=== PATIENT | female | born 1995 | race Caucasian/White ===

== ENCOUNTER 2016-07-19 15:16 | Inpatient (IN) ==
[2016-07-19] MEDS ORDERED: Famotidine 20 MG/2 ML VIAL IVP PRN (15:21)
[2016-07-19] MEDS ORDERED: Naloxone 0.4 MG/ML INJ IVP PRN (15:21)
[2016-07-19] MEDS ORDERED: Ondansetron 4 MG/2 ML VIAL IVP PRN (15:21)
[2016-07-19] MEDS ORDERED: miSOPROStol 100 MCG TABLET PO STA (15:23)
[2016-07-19] MEDS ORDERED: *HR* Nalbuphine 20 MG/ML AMPUL IVP PRN (15:25)
[2016-07-19] MEDS ORDERED: Ringers Solution, Lactated 1,000 ML IVC SCH (15:30)
[2016-07-19 15:48] LABS: Basophils # 0.1 K/mcL (0.0-0.2); Basophils % 0.6 %; Eosinophils # 0.4 K/mcL (0.0-0.6); Eosinophils % 3.5 %; Hematocrit 33.8 % (35.3-44.9); Hemoglobin 11.6 g/dL (11.5-15.4); Immature Granulocytes % 0.7 % (0-4); Lymphocytes # 3.3 K/mcL (0.6-4.6); Lymphocytes % 30.4 %; Mean Corpuscular HGB Conc 34.3 g/dL (31.6-35.5); Mean Corpuscular Hemoglobin 31.2 pg (28.0-33.3); Mean Corpuscular Volume 90.9 fL (83.0-100.0); Mean Platelet Volume 9.8 fL (9.4-12.4); Monocytes # 0.6 K/mcL (0.0-1.3); Neutrophils # 6.5 K/mcL (1.6-8.9); Platelet Count 425 K/mcL (140-400); Red Blood Count 3.72 M/mcL (3.82-4.97); Red Cell Distribution Width 13.2 % (11.5-14.5); Segmented Neutrophils % 59.8 %
--- NOTE | 2016-07-19 16:50 | OB/GYN History & Physical ---
Date of Encounter: 07/19/16 Time of Encounter: 16:48 Assessment and Plan (1) and not yet delivered in third trimester Current visit: No Status: Acute - Labor induction -50 mg Cytotec by mouth. -Monitor for progression of vaginal delivery. (2) 39 weeks gestation of Current visit: No Status: Acute History of Present Illness HPI: Ms. Mishra is a 21 y/o old female and a history of ectopic presenting at 39 weeks and 1 day. She is presenting to be induced. Patient is complicated by maternal hepatitis C infection, several yeast infections, and anemia. She is a current every day smoker. She does report a 2-3 year ago history of drug use. She states she just recently finished azithromycin for a URI. She reports a cough that is getting better at this time. She is also reporting a yeast infection. She has no other complaints at this time. She is resting comfortably in bed with no distress. Past Med Surg Social Fam HX - Past Medical History Medical history: no medical history, other Psychiatric history: anxiety, PTSD - Past Surgical History Surgical History: other - Social History Smoking Status: Current every day smoker Packs per day: 1 Smokeless Tobacco Status: No Alcohol use: none Drug use: none - Family History Mother Name: Minerva Colon Family Member Ethnicity: Non- Living Status: Still Living Hx Family Cardiac Disorders: No Hx Family Respiratory Disorders: No Hx Family Cancer: No Hx Family GI Disorders: No Hx Family Endocrine Disorder: No Hx Family Neuromuscular Disorders: No Hx Family Neurologic Disorders: No Hx Family HEENT Disorders: No Hx Family Autoimmune Disorders: No Hx Family Medical Disorders: Yes (Anxiety) Obstetrical History - Pregnancies : 2 Para: 0 - History/Complications History/Complications: 1 ectopic . Medications and Allergies Loratadine [Claritin] 10 mg PO DAILY #30 tablet 01/06/16 [Rx] Seroquel 25 mg PO DAILY 07/17/16 [History] Allergies Penicillins [PCN] Allergy (Verified 03/29/16 19:37) Rash Review of System OB All systems PM: reviewed and no additional remarkable complaints except as stated - Respiratory Respiratory: cough (productive), no dyspnea, no dyspnea on exertion, no wheezing , no pain on inspiration, no pain with cough - Genitourinary Genitourinary: vaginal pruritis, other (Reported yeast infection.) Exam - Vital Signs Vital signs: Initial Vital Signs Temp Pulse Resp BP 97.6 F 89 16 109/77 07/19/16 15:55 07/19/16 15:55 07/19/16 15:55 07/19/16 15:55 - Constitutional Constitutional: well developed, well nourished, no acute distress, average body habitus - HEENT HEENT: EOMI, PERRL, Normocephaly, Mucus Membranes Moist - Neck Neck exam: full ROM, normal inspection, supple, trachea midline - Lungs Respiratory exam: CTAB - Cardiovascular Cardiovascular exam: RRR - Abdomen Abdomen: Present: bowel sounds normal, gravid, non tender - Extremities Deep Tendon Reflex Grade: 2+ Normal - Uterus Uterus exam: Present: normal size. Absent: tender Results Result Diagrams: 07/19/16 15:35 Abnormal lab results RBC 3.72 M/mcL (3.82-4.97) L 07/19/16 15:35 Hct 33.8 % (35.3-44.9) L 07/19/16 15:35 Plt Count 425 K/mcL (140-400) H 07/19/16 15:35 All other labs normal. - VTE Reasons for not Prescribing Prophylaxis: Treatment not Indicated - Low risk for VTE
[2016-07-19] MEDS ORDERED: *HR* Nalbuphine 20 MG/ML AMPUL ONE (19:55)
[2016-07-19] MEDS ORDERED: Oxytocin 20 units/ LR 1000 mL 20 UNIT/1,000 ML BAG IVC ONE (21:43)
[2016-07-19] MEDS ORDERED: Oxytocin 20 units/ LR 1000 mL 20 UNIT/1,000 ML BAG IVC SCH (21:45)
--- NOTE | 2016-07-19 21:48 | OB Labor Progress Note ---
Date of Encounter: 07/19/16 Time of Encounter: 21:46 Labor Progress Note - Subjective Subjective: Contraction intensity improved s/p Nubain - Cervix Cervix: 3/80/-2 - Heart Tones Heart Tones: RNST - [place]: UC's irregular - Interventions Interventions: Will start Pitocin. - Plan Plan: Expect .
[2016-07-19] MEDS ORDERED: Nicotine 14 MG PATCH.TD24 TD SCH (22:45)
--- NOTE | 2016-07-20 00:33 | OB Labor Progress Note ---
Date of Encounter: 07/20/16 Time of Encounter: 00:30 Labor Progress Note - Subjective Subjective: Pt getting more uncomfotable - Cervix Cervix: 2-3/70/-2 - Heart Tones Heart Tones: RNST - [place] Add[place]: UC's q 2-3 min - Interventions Interventions: AROM clear, IUPC placed without difficulty - Plan Plan: Expect
[2016-07-20] MEDS ORDERED: Bupivacaine-MPF 0.25% 10 ML VIAL EP ONE (00:58)
[2016-07-20] MEDS ORDERED: *HR* FentaNYL (PF) 100 MCG/2 ML VIAL EP ONE (00:58)
[2016-07-20] MEDS ORDERED: Epidural Premix (fent/bupiv) 110 ML EP SCH (01:00)
[2016-07-20] MEDS ORDERED: Epidural Premix (fent/bupiv) 110 ML EP ONE (01:08)
[2016-07-20] MEDS ORDERED: *HR* FentaNYL (PF) 100 MCG/2 ML VIAL ONE (01:08)
[2016-07-20] MEDS ORDERED: Bupivacaine-MPF 0.25% 10 ML VIAL ONE (01:08)
--- NOTE | 2016-07-20 01:42 | Anesthesia Evaluation PreOp ---
Date of Encounter: 07/20/16 Time of Encounter: 01:00 - Past History Planned Operation: labor epidural Cardiac History: Denies any Significant Hx Pulmonary History: Smoker (1/2 ppd) C WPF DEVELOPER History: Denies Any Significant HX, Other (anxiety/depression) Other Medical History: Denies Any Significant HX Anesthesia History: No Prior Anesthetic Complications, Past Anesthesia (T&A, fallopian tube removed.) : Yes Alcohol Use: none Drug use: none Medications and Allergies Loratadine [Claritin] 10 mg PO DAILY #30 tablet 01/06/16 [Rx] Seroquel 25 mg PO DAILY 07/17/16 [History] Allergies Penicillins [PCN] Allergy (Verified 03/29/16 19:37) Rash - Meds/Allergy Pre-op Review Medications Reviewed: Yes Allergies Reviewed: Yes Beta Blockers on Current Med List: No Anesthesia Results - Labs 07/19/16 15:35 Anesthesia Exam 132/1021, 66, 16, 98% Height: 5'3" Weight: 76 NPO (# of Hours): 6 Pain Scale: 10 Pain Scale Used: Numeric (1 - 10) - HEENT Pupil (Motor): Pupils equal, EOMI Mallampati: II Teeth: Normal Oral Opening: Greater than 3 - C WPF DEVELOPER LOC: Oriented C WPF DEVELOPER Motor: Normal RUE, Normal LUE, Normal RLE, Normal LLE, Normal Face C [employer] DEVELOPER Sensory: Normal: RUE, LUE, RLE, LLE, Face - Cardiac Rhythm: Regular Murmur: None - Pulmonary Breath Sounds: bilateral Clear Respiratory Effort: Symmetrical Anesthesia Assess/Plan ASA Score: 2 Modified Pioneer Scale for Level of Consciousness: Cooperative, oriented, and tranquil Anesthetic Plan: Regional Monitoring Plan: Standard Monitors
--- NOTE | 2016-07-20 01:47 | Anesthesia Procedures ---
Date of Encounter: 07/20/16 Time of Encounter: 01:10 Procedures: Anesthesia - Epidural/Spinal Patient ID/Chart reviewed: Yes Patient examined: Yes OB Eval: Gestational age: 39 OB Eval: : 2 OB Eval: Hx Para: 0 OB Eval: Dilated at (cm): 2 OB Eval: Contractions: Non-stressed pattern Consent Obtained: Yes Supplemental Oxygen: None/Room Air Site Prep: Aseptic Technique, Sterile prep and drape, Povidone-Iodine 1% Patient position: upright Local Anesthetic: Lidocaine 1% Amount of Local Anesthetic used: 3 Touhy Needle Gauge: 18 Touhy Needle Depth (cm): 5 Catheter Depth at Skin (cm): 16 Test Dose (1.5% Lido + Epi): Volume given (mls): 3 Test Dose Result: Negative Loading Dose: 0.25% Marcaine (mls): 8 Loading Dose: Fentanyl (mcg): 100 Loading Dose Administered: Thru Catheter Infusion Med: 0.125% Bupivacaine w/ 2 mcg/ml Fentanyl Infusion Rate (mls/hr): [address]: Tegaderm, Tape Interspace Used: L2-L3 Loss of Resistance (ONUR): Yes Blood: No CSF: No Paresthesia: No Vitals + FHT's: 3 Vital Signs Time 0110 0115 0120 0125 0130 0135 BP 128/84 123/83 123/79 123/86 122/87 115/74 Pulse 84 83 84 70 61 66 FHTs 125 125 130 125 125 125
--- NOTE | 2016-07-20 06:27 | OB/GYN Procedure Note ---
Delivery - Delivery Date: 07/20/16 Provider: Lior Burdick Intrapartum events: none Delivery induction: oxytocin, misoprostol Delivery monitor: external FHT, internal FHT Anesthesia: epidural Estimated Blood Loss: 100 - (s) Infant A Infant Delivery Date: 07/20/16 Delivery Time: 06:01 Presentation: vertex Position: CLARA Route of delivery: Gender: Male Viability: Viable Pounds: 6 Ounces: 12 at 1 minute: 8 at 5 mins: 9 Shoulder Dystocia: not encountered Placenta: spontaneous Cord: 3 umbilical vessels - Repair Episiotomy: none Laceration Description: Perineal - 2nd Degree, Labial - Complications Delivery complications: none - Disposition Mom disposition: stable in LDR disposition: stable in LDR
[2016-07-20] MEDS ORDERED: Acetaminophen 325 MG TABLET PO PRN (08:53)
[2016-07-20] MEDS ORDERED: Measles/Mumps/Rubella Vacc 0.5 ML VIAL SQ PRN (08:53)
[2016-07-20] MEDS ORDERED: Oxytocin 20 units/ LR 1000 mL 20 UNIT/1,000 ML BAG IVC ONE (08:53)
[2016-07-20] MEDS ORDERED: Oxytocin 20 units/ LR 1000 mL 20 UNIT/1,000 ML BAG IV SCH (08:53)
[2016-07-20] MEDS ORDERED: Prenatal Vit/FA 1 EACH TABLET PO SCH (09:00)
[2016-07-20] MEDS: Ibuprofen 600 MG TABLET PO PRN ×2 (09:00→20:43)
[2016-07-20] MEDS ORDERED: Lanolin 7 G OINT...G. TP PRN (17:17)
[2016-07-21 04:14] LABS: Basophils # 0.1 K/mcL (0.0-0.2); Basophils % 0.5 %; Eosinophils # 0.3 K/mcL (0.0-0.6); Eosinophils % 2.4 %; Hematocrit 26.1 % (35.3-44.9); Immature Granulocytes % 0.9 % (0-4); Lymphocytes # 3.4 K/mcL (0.6-4.6); Lymphocytes % 23.9 %; Mean Corpuscular HGB Conc 33.3 g/dL (31.6-35.5); Mean Corpuscular Hemoglobin 31.1 pg (28.0-33.3); Mean Corpuscular Volume 93.2 fL (83.0-100.0); Mean Platelet Volume 9.8 fL (9.4-12.4); Monocytes # 0.7 K/mcL (0.0-1.3); Neutrophils # 9.5 K/mcL (1.6-8.9); Platelet Count 338 K/mcL (140-400); Red Cell Distribution Width 13.3 % (11.5-14.5); Segmented Neutrophils % 67.3 %
[2016-07-21 04:31] LABS: Hemoglobin 8.7 g/dL (11.5-15.4)
[2016-07-21] MEDS: Ibuprofen 600 MG TABLET PO PRN (07:33)
[2016-07-21 07:39] VITALS: BP 110/74
--- NOTE | 2016-07-21 09:30 | Discharge Summary ---
Date of Encounter: 07/21/16 Time of Encounter: 09:27 - Discharge Diagnosis (1) Status post vaginal delivery Priority: Primary Status: Acute Comments: Continue routine care discharge today follow up with Dr. Burdick in 4-6 weeks (2) Breast feeding status of mother Priority: Secondary Status: Acute Comments: support PRN (3) anemia Priority: Secondary Status: Acute Comments: Continue ferrous sulfate daily - Discharge Medications Prescriptions: Ibuprofen [Motrin] 600 mg PO Q6HR PRN #60 tablet PRN Reason: Cramping Breast Pump [BREAST PUMP] 1 each .ROUTE AD #1 each Docusate [Colace] 100 mg PO BID #60 capsule Ferrous Sulfate 325 mg PO DAILY #30 tablet Home Medications: Loratadine [Claritin] 10 mg PO DAILY #30 tablet 01/06/16 [Rx] Seroquel 25 mg PO DAILY 07/17/16 [History] Breast Pump [BREAST PUMP] 1 each .ROUTE AD #1 each 07/21/16 [Rx] Docusate [Colace] 100 mg PO BID #60 capsule 07/21/16 [Rx] Ferrous Sulfate 325 mg PO DAILY #30 tablet 07/21/16 [Rx] Ibuprofen [Motrin] 600 mg PO Q6HR PRN #60 tablet 07/21/16 [Rx] Vit/FA 1 each PO DAILY tablet 07/21/16 [Rx] Allergies/Adverse Reactions: Allergies Penicillins [PCN] Allergy (Verified 03/29/16 19:37) Rash Data Procedures and tests throughout hospitalization: Laboratory Tests 07/19/16 07/21/16 15:35 03:46 WBC 10.9 14.1 H RBC 3.72 L 2.80 L Hgb 11.6 8.7 L D Hct 33.8 L 26.1 L MCV 90.9 93.2 MCH 31.2 31.1 MCHC 34.3 33.3 RDW 13.2 13.3 Plt Count 425 H 338 MPV 9.8 9.8 Immature Gran % 0.7 0.9 Seg Neutrophils % 59.8 67.3 Lymphocytes % 30.4 23.9 Monocytes % 5.0 5.0 Eosinophils % 3.5 2.4 Basophils % 0.6 0.5 Neutrophils # 6.5 9.5 H Lymphocytes # 3.3 3.4 Monocytes # 0.6 0.7 Eosinophils # 0.4 0.3 Basophils # 0.1 0.1 Labs on day of discharge: Labs from last 24 hours 07/21/16 03:46 WBC 14.1 H RBC 2.80 L Hgb 8.7 L D Hct 26.1 L MCV 93.2 MCH 31.1 MCHC 33.3 RDW 13.3 Plt Count 338 MPV 9.8 Immature Gran % 0.9 Seg Neutrophils % 67.3 Lymphocytes % 23.9 Monocytes % 5.0 Eosinophils % 2.4 Basophils % 0.5 Neutrophils # 9.5 H Lymphocytes # 3.4 Monocytes # 0.7 Eosinophils # 0.3 Basophils # 0.1 Date of admission: 07/19/16 15:16 Primary care physician: PCP NO Consults: 07/20/16 08:53 Consult to Metal Hanging Helper [CONS] Routine Comment: Vaginal delivery, consult needed Discharging clinician: Luz Mendoza Anticipated date of discharge: 07/21/16 - Patient Status Disposition: Home, Self-Care Condition: Good Functional capacity at discharge: independent ambulation - Discharge Instructions Follow Up With: WILFRED,PCP [Primary Care Provider] - Lior Burdick MD [Partnered Physician] - - Diet and Activity Activity: increase activity as tolerated Diet: regular diet Hospital Course Reason for admission: induction of labor Delivery: Episiotomy: none Other procedures: none complications: none Discharge diagnosis: IUP at term delivered baby: male (breast feeding) Time Attestation: Total time spent providing and/or coordinating discharge services: Time Spent: Less than 30 minutes Exam - Constitutional Vitals: Temp Pulse Resp BP Pulse Ox 97.1 F L 91 16 110/74 97 07/21/16 07:37 07/21/16 07:37 07/21/16 07:45 07/21/16 07:37 07/21/16 07:37 General appearance IM: A&O X 3, pleasant, answers questions appropriately - Respiratory Respiratory exam: Present: CTAB - Cardiovascular Cardiovascular exam IM: Present: RRR, +S1, +S2 - GI/Abdominal GI/Abdominal exam IM: normal bowel sounds - Uterine Tone: Firm Uterus Position: 2 Fingers Below Umbilicus, Midline - Extremities Exam Extremities exam IM: Present: normal capillary refill, normal inspection - Neurological Exam Neurological exam: oriented X3, reflexes normal
== END 2016-07-21 12:24 | disposition home or self-care (01) | DRG 560 ==
LOC: 1NENULAB 15:16 → 1NENUOBS 07-20 08:49
PROVIDERS: ADMIT Obstetrics & Gynecology; ATTEND Obstetrics & Gynecology

== ENCOUNTER 2017-09-05 03:37 | Inpatient (IN) ==
[2017-09-05] MEDS ORDERED: Ziprasidone injection 20 MG/ML VIAL IM ONE (04:15)
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
[2017-09-05 05:12] LABS: Amphetamine Screen,Urine Positive ng/mL (Cutoff=1000); Barbiturate Screen,Urine Negative ng/mL (Cutoff=200); Benzodiazepines Screen,Urine Negative ng/mL (Cutoff=200); Cannabinoid Screen,Urine Positive ng/mL (Cutoff = 50); Cocaine Screen,Urine Positive ng/mL (Cutoff= 300); Opiate Screen,Urine Negative ng/mL (Cutoff=300); Phencyclidine Screen,Urine Negative ng/mL (Cutoff=25)
[2017-09-05 05:16] LABS: Bilirubin,Urine Small (Negative); Blood,Urine Large (Negative); Clarity,Urine Cloudy (Clear); Color,Urine Dark Yellow (Yellow); Glucose,Urine (UA) Normal (Normal); Ketones,Urine Negative (Negative); Leukocyte Esterase,Urine Small (Negative); Nitrite,Urine Negative (Negative); PH,Urine 5.5 pH Units (5.0-8.0); Protein,Urine 30 mg/dL (Neg-Trace); Specific Gravity,Urine 1.028 (1.010-1.025); Urobilinogen,Urine Normal (Normal)
[2017-09-05 05:20] LABS: Bacteria,Urine None Seen per hpf (None-Few); Hyaline Casts,Urine Few per lpf (None-Few); Squamous Epithelial Cell,Urine Many per lpf (None-Few)
[2017-09-05 05:42] LABS: Basophils # 0.1 K/mcL (0.0-0.2); Basophils % 0.5 %; Eosinophils % 0.2 %; Hematocrit 44.4 % (35.3-44.9); Hemoglobin 14.7 g/dL (11.5-15.4); Immature Granulocytes % 0.3 % (0-4); Lymphocytes % 31.2 %; Mean Corpuscular HGB Conc 33.1 g/dL (31.6-35.5); Mean Corpuscular Hemoglobin 30.2 pg (28.0-33.3); Mean Corpuscular Volume 91.4 fL (83.0-100.0); Mean Platelet Volume 9.2 fL (9.4-12.4); Monocytes # 0.6 K/mcL (0.0-1.3); Monocytes % 4.6 %; Platelet Count 321 K/mcL (140-400); Red Blood Count 4.86 M/mcL (3.82-4.97); Red Cell Distribution Width 12.9 % (11.5-14.5); Segmented Neutrophils % 63.2 %
[2017-09-05 06:04] LABS: Acetaminophen < 1.0 mcg/mL (10-30); Ethanol < 10 mg/dL (0-10); Salicylate < 5.0 mg/dL (15.0-30.0)
[2017-09-05 06:09] LABS: Alanine Aminotransferase 56 Units/L (7-52); Albumin 4.9 g/dL (3.5-5.7); Albumin/Globulin Ratio 1.5 (1.1-2.2); Alkaline Phosphatase 51 Units/L (34-104); Aspartate Amino Transferase 29 Units/L (13-39); BUN/Creatinine Ratio 28 (6-26); Bilirubin,Direct 0.3 mg/dL (0.0-0.2); Bilirubin,Indirect 1.2 mg/dL (0.0-1.2); Bilirubin,Total 1.5 mg/dL (0.3-1.0); Blood Urea Nitrogen 23 mg/dL (6-20); Carbon Dioxide 26 mEq/L (23-29); Chloride 107 mEq/L (98-107); Globulin 3.2 g/dL (2.4-3.5); Glucose 93 mg/dL (70-105); Osmolality,Calculated 295 (280-300); Potassium 3.3 mEq/L (3.5-5.1); Sodium 141 mEq/L (136-145); Total Protein 8.1 g/dL (6.4-8.9); eGFR For African Americans > 60 (> 60); eGFR For Non-African Americans > 60 (> 60)
[2017-09-05 06:21] LABS: Thyroid Stimulating Hormone 0.859 mcIU/mL (0.340-5.600)
[2017-09-05] MEDS ORDERED: Haloperidol Lactate 5 MG/ML VIAL IM ONE (07:38)
[2017-09-05] MEDS ORDERED: *HR* LORazepam 2 MG/ML VIAL IM ONE (07:38)
[2017-09-05] MEDS: Sulfamethoxazole/Trimeth DS 1 EACH TABLET PO SCH ×2 (07:46→13:59)
[2017-09-05] MEDS: Nicotine 21 MG PATCH.TD24 TD SCH (08:04)
[2017-09-05] MEDS ORDERED: Mag Hydrox/Al Hydrox/Simeth 30 ML UDC PO PRN (14:30)
[2017-09-05] MEDS ORDERED: Haloperidol Lactate 5 MG/ML VIAL IM PRN (14:30)
[2017-09-05] MEDS ORDERED: MOM Conc 10 ML UD.LIQ PO PRN (14:30)
[2017-09-05] MEDS ORDERED: *HR* LORazepam 1 MG TABLET PO PRN (14:30)
[2017-09-05] MEDS ORDERED: *HR* LORazepam 2 MG/ML VIAL IM PRN (14:30)
[2017-09-05] MEDS: Ibuprofen 400 MG TABLET PO PRN (20:38)
[2017-09-05] MEDS: hydrOXYzine pamoate 25 MG CAPSULE PO PRN (20:39)
[2017-09-06] MEDS: Nicotine 21 MG PATCH.TD24 TD SCH (08:45)
[2017-09-06] MEDS: Sulfamethoxazole/Trimeth DS 1 EACH TABLET PO SCH (08:45)
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
[2017-09-06] MEDS: Ibuprofen 400 MG TABLET PO PRN (12:36)
[2017-09-06] MEDS: hydrOXYzine pamoate 25 MG CAPSULE PO PRN (12:36)
[2017-09-06] MEDS: lamoTRIgine 25 MG TABLET PO SCH (21:25)
[2017-09-07] MEDS: Nicotine 21 MG PATCH.TD24 TD SCH (08:07)
[2017-09-07] MEDS: Sulfamethoxazole/Trimeth DS 1 EACH TABLET PO SCH (08:07)
--- NOTE | 2017-09-07 11:43 | Psychiatry Progress Note ---
Date of Encounter: 09/07/17 Time of Encounter: 11:30 Subjective Interval history: Patient seen today case d/w staff and treatment team . states i want to go home i am alright. she has no insight , she states i do not feel better , i miss my family. she saw her son yesterday and felt better , my grand mother has custody now and he is safe . she is looking sad , dysphoric and admits to being depress. she denies suicidal /homicidal thoughts. paranoia improving , denies hallucination. Review of Systems Psychiatric: Reports: depression, anxiety, abnormal sleep pattern, auditory hallucinations, visual hallucinations, irritability, mood swings (patient denies any medical problems except scoliosis.) Objective: Exam Patient orientation: Yes Person, Yes Time, Yes Place Level of alertness: Alert Patient appearance: Appropriate Behavior: cooperative, withdrawn Psychomotor activity: Slowed Eye contact: Minimal Contact Mood description: Depressed, Anxious Affect description: congruent with mood Speech pattern: Slowed Speech volume: Soft/Quiet Thought process: Intact Thought content: Yes Preoccupation, Yes Guilt Judgment: Limited Insight: Minimal Results - Vital Signs Vital Signs: Temp Pulse Resp BP Pulse Ox 97.8 F 101 16 112/80 96 09/07/17 09:00 09/07/17 09:00 09/07/17 09:00 09/07/17 09:00 09/05/17 09:00 Assessment and Plan (1) Bipolar disorder, curr episode depressed, severe, w/psychotic features Current visit: Yes Status: Acute Risks, benefits, side effects, alternatives discussed w/pt: Yes Patient agreeable to treatment: Yes (2) Polysubstance (excluding opioids) dependence Current visit: Yes Status: Acute Risks, benefits, side effects, alternatives discussed w/pt: Yes Patient agreeable to treatment: Yes (3) PTSD (post-traumatic stress disorder) Current visit: Yes Status: Chronic Risks, benefits, side effects, alternatives discussed w/pt: Yes Patient agreeable to treatment: Yes Consult Discharge Plan - Plan Referrals: [facility] [Outside] (The above appointment is with Zenaida Vargas, counselor at [facility]. Your first appointment will be very thorough and the total appointment time will take between two and three hours. You will be completing paperwork, meeting with a counselor and a nurse, and developing a treatment plan. You will receive follow- up appointments for on-going services, which could include community support, mental health and substance abuse counseling, groups/partial hospitalization programming, medication assisted treatment, and psychiatric medication management. Please bring the following with you to your first visit to the clinic: 1) proof of household income (two consecutive pay stubs, social security award letter, bank statement, statement letter from [facility], child support statement, IRS 1040 or W2 form, or a statement from the person who financially supports you stating they help provide for your basic needs), 2) proof of residency (drivers license, a piece of mail showing your address, a statement from person you live with verifying you live at their address), 3) your social security card, 4) photo ID, and 5) your insurance card (if you have commercial insurance you must call to obtain a prior authorization number before you arrive to your first appointment). If you do not bring these items, you will not be seen.) Judi Ruiz [Advanced Practice Nurse] - (The above appointment is with Judi Ruiz CNP, at Primary Care within [facility]. This appointment is to establish you with a primary care provider. Your needs for medication and/or Vivitrol will be assessed and treated as indicated as well. Please arrive 15 minutes early to complete paperwork. Please bring your insurance card, photo ID and list of current medications to your first appointment. The above appointment(s) reflects first availability. You may contact the office regularly to check for cancellations that may allow you to be seen sooner.)
[2017-09-07] MEDS: Ibuprofen 400 MG TABLET PO PRN (12:47)
[2017-09-07] MEDS: hydrOXYzine pamoate 25 MG CAPSULE PO PRN ×2 (12:47→16:57)
[2017-09-07] MEDS ORDERED: Nicotine 2 MG GUM BC PRN (18:38)
[2017-09-07] MEDS: lamoTRIgine 25 MG TABLET PO SCH (21:29)
[2017-09-07] MEDS: BuPROPion SR (12 HR) 100 MG TABLET PO SCH (21:29)
[2017-09-08] MEDS: BuPROPion SR (12 HR) 100 MG TABLET PO SCH ×2 (08:56→21:28)
[2017-09-08] MEDS: Sulfamethoxazole/Trimeth DS 1 EACH TABLET PO SCH (08:56)
[2017-09-08] MEDS: Nicotine 21 MG PATCH.TD24 TD SCH (10:57)
[2017-09-08] MEDS: hydrOXYzine pamoate 25 MG CAPSULE PO PRN ×2 (11:24→21:30)
--- NOTE | 2017-09-08 11:32 | Psychiatry Progress Note ---
Date of Encounter: 09/08/17 Time of Encounter: 11:15 Subjective Interval history: Patient seen today , case d/w treatment team . Patient states today doing better, attending groups and compliant with treatment plan, she stated to social workerthat she has been getting suboxone from street and is withrawing . her tox was positive for marijuana, amphetamines and cocain , she said is only having cold sweats , her vitals are stable. she feels depression is better and sleep is good, i am finally talking to patients and learning coping skills. states does not have cravings at present. psychosis improving. Review of Systems Psychiatric: Reports: depression, anxiety, abnormal sleep pattern, auditory hallucinations, visual hallucinations, irritability, mood swings (patient denies any medical problems except scoliosis.) Objective: Exam Patient orientation: Yes Person, Yes Time, Yes Place Level of alertness: Alert Patient appearance: Appropriate Behavior: calm, cooperative Psychomotor activity: Normal Eye contact: Maintains Eye Contact Mood description: Euthymic/stable Affect description: constricted Speech volume: Normal Thought process: Intact Thought content: Yes Preoccupation, Yes Guilt Judgment: Limited Insight: Partial Results - Vital Signs Vital Signs: Temp Pulse Resp BP Pulse Ox 97.7 F 87 18 105/74 96 09/08/17 09:00 09/08/17 09:00 09/08/17 09:00 09/08/17 09:00 09/05/17 09:00 Assessment and Plan (1) Bipolar disorder, curr episode depressed, severe, w/psychotic features Current visit: Yes Status: Acute Risks, benefits, side effects, alternatives discussed w/pt: Yes Patient agreeable to treatment: Yes (2) Polysubstance (excluding opioids) dependence Current visit: Yes Status: Acute Risks, benefits, side effects, alternatives discussed w/pt: Yes Patient agreeable to treatment: Yes (3) PTSD (post-traumatic stress disorder) Current visit: Yes Status: Chronic Risks, benefits, side effects, alternatives discussed w/pt: Yes Patient agreeable to treatment: Yes Consult Discharge Plan - Plan Referrals: [facility] [Outside] - 09/14/17 10:30 am (The above appointment is with Zenaida Vargas, counselor at [facility]. Your first appointment will be very thorough and the total appointment time will take between two and three hours. You will be completing paperwork, meeting with a counselor and a nurse, and developing a treatment plan. You will receive follow- up appointments for on-going services , which could include community support, mental health and substance abuse counseling, groups/partial hospitalization programming, medication assisted treatment, and psychiatric medication management. Please bring the following with you to your first visit to the clinic: 1) proof of household income (two consecutive pay stubs, social security award letter, bank statement, statement letter from [facility], child support statement, IRS 1040 or W2 form, or a statement from the person who financially supports you stating they help provide for your basic needs), 2) proof of residency (drivers license, a piece of mail showing your address, a statement from person you live with verifying you live at their address), 3) your social security card, 4) photo ID, and 5) your insurance card (if you have commercial insurance you must call to obtain a prior authorization number before you arrive to your first appointment). If you do not bring these items, you will not be seen.) Judi Ruiz [Advanced Practice Nurse] - 09/15/17 11:00 am (The above appointment is with Judi Ruiz CNP, at Primary Care within [facility]. This appointment is to establish you with a primary care provider. Your needs for medication and/or Vivitrol will be assessed and treated as indicated as well. Please arrive 15 minutes early to complete paperwork. Please bring your insurance card, photo ID and list of current medications to your first appointment. The above appointment(s) reflects first availability. You may contact the office regularly to check for cancellations that may allow you to be seen sooner.)
[2017-09-08] MEDS: Ibuprofen 400 MG TABLET PO PRN (21:29)
[2017-09-08] MEDS: lamoTRIgine 25 MG TABLET PO SCH (21:29)
[2017-09-09] MEDS: Sulfamethoxazole/Trimeth DS 1 EACH TABLET PO SCH (08:33)
[2017-09-09] MEDS: BuPROPion SR (12 HR) 100 MG TABLET PO SCH ×2 (08:34→21:32)
[2017-09-09] MEDS: Nicotine 21 MG PATCH.TD24 TD SCH (08:34)
--- NOTE | 2017-09-09 11:36 | Psychiatry Progress Note ---
Date of Encounter: 09/09/17 Time of Encounter: 11:20 Subjective Interval history: Patient seen today , case d/w staff , states i am doing better, i had visit from grandma and my child it was good . she is showing improvement , psychosis is getting better and her moods are more stable. she denies side effects. denies si/hi at present. she is focused on getting out , does not feel need rehab, education given to her and she will think about out patient rehab. she agreed. Review of Systems Psychiatric: Reports: depression, anxiety, abnormal sleep pattern, auditory hallucinations, visual hallucinations, irritability, mood swings (patient denies any medical problems except scoliosis.) Results - Vital Signs Vital Signs: Temp Pulse Resp BP Pulse Ox 98.2 F 90 16 106/79 96 09/09/17 09:00 09/09/17 09:00 09/09/17 09:00 09/09/17 09:00 09/05/17 09:00 Assessment and Plan (1) Bipolar disorder, curr episode depressed, severe, w/psychotic features Current visit: Yes Status: Acute Risks, benefits, side effects, alternatives discussed w/pt: Yes Patient agreeable to treatment: Yes (2) Polysubstance (excluding opioids) dependence Current visit: Yes Status: Acute Risks, benefits, side effects, alternatives discussed w/pt: Yes Patient agreeable to treatment: Yes (3) PTSD (post-traumatic stress disorder) Current visit: Yes Status: Chronic Risks, benefits, side effects, alternatives discussed w/pt: Yes Patient agreeable to treatment: Yes Consult Discharge Plan - Plan Referrals: [facility] [Outside] - 09/14/17 10:30 am (The above appointment is with Zenaida Vargas, counselor at [facility]. Your first appointment will be very thorough and the total appointment time will take between two and three hours. You will be completing paperwork, meeting with a counselor and a nurse, and developing a treatment plan. You will receive follow- up appointments for on-going services , which could include community support, mental health and substance abuse counseling, groups/partial hospitalization programming, medication assisted treatment, and psychiatric medication management. Please bring the following with you to your first visit to the clinic: 1) proof of household income (two consecutive pay stubs, social security award letter, bank statement, statement letter from [facility], child support statement, IRS 1040 or W2 form, or a statement from the person who financially supports you stating they help provide for your basic needs), 2) proof of residency (drivers license, a piece of mail showing your address, a statement from person you live with verifying you live at their address), 3) your social security card, 4) photo ID, and 5) your insurance card (if you have commercial insurance you must call to obtain a prior authorization number before you arrive to your first appointment). If you do not bring these items, you will not be seen.) Judi Ruiz [Advanced Practice Nurse] - 09/15/17 11:00 am (The above appointment is with Judi Ruiz CNP, at Primary Care within [facility]. This appointment is to establish you with a primary care provider. Your needs for medication and/or Vivitrol will be assessed and treated as indicated as well. Please arrive 15 minutes early to complete paperwork. Please bring your insurance card, photo ID and list of current medications to your first appointment. The above appointment(s) reflects first availability. You may contact the office regularly to check for cancellations that may allow you to be seen sooner.) Psychiatry Exam - Constitutional Vitals: Temp Pulse Resp BP Pulse Ox 98.2 F 90 16 106/79 96 09/09/17 09:00 09/09/17 09:00 09/09/17 09:00 09/09/17 09:00 09/05/17 09:00 General appearance: age & developmentally appropriate - Musculoskeletal Gait: normal Station: other Strength & Tone: normal for patient - Psychiatric Patient Orientation: Yes Person, Yes Time, Yes Place Level of alertness: Alert Behavior: calm, cooperative Psychomotor activity: Normal Eye Contact: Maintains Eye Contact Mood Description: Euthymic/stable, Anxious Affect description: congruent with mood Speech Volume: Normal Speech pattern: clear, coherent Language & Vocabulary: consistent with education Thought Content: Yes Guilt Perceptual Disturbances: No Auditory hallucinations, No Visual hallucinations Attention Span Ability: Capable of Focused Attention Memory Description: Grossly Intact Fund of knowledge: Yes average Intelligence Estimate: Average Judgment: Limited Insight: Minimal
[2017-09-09] MEDS: hydrOXYzine pamoate 25 MG CAPSULE PO PRN ×2 (12:38→21:33)
[2017-09-09] MEDS: lamoTRIgine 25 MG TABLET PO SCH (21:33)
[2017-09-10] MEDS: BuPROPion SR (12 HR) 100 MG TABLET PO SCH ×2 (09:12→21:29)
[2017-09-10] MEDS: Sulfamethoxazole/Trimeth DS 1 EACH TABLET PO SCH (09:12)
[2017-09-10] MEDS: Nicotine 21 MG PATCH.TD24 TD SCH (09:12)
[2017-09-10] MEDS: hydrOXYzine pamoate 25 MG CAPSULE PO PRN ×2 (10:06→15:00)
--- NOTE | 2017-09-10 12:42 | Psychiatry Progress Note ---
Date of Encounter: 09/10/17 Time of Encounter: 12:30 Subjective Interval history: patient seen today , case d/w staff. Patient states did not sleep well last night from disruption on unit and changing her room , but feels ok now, depression better, denies any psychosis at present. she was given detail education on her substance use and importance of soberity , she agreed to go to out patient rehab and to be compliant with her medication. denies side effects . AIMS 0 Review of Systems Psychiatric: Reports: depression, anxiety, abnormal sleep pattern, auditory hallucinations, visual hallucinations, irritability, mood swings (patient denies any medical problems except scoliosis.) Results - Vital Signs Vital Signs: Temp Pulse Resp BP Pulse Ox 97.9 F 76 16 110/79 96 09/10/17 09:00 09/10/17 09:00 09/10/17 09:00 09/10/17 09:00 09/05/17 09:00 Assessment and Plan (1) Bipolar disorder, curr episode depressed, severe, w/psychotic features Current visit: Yes Status: Acute Risks, benefits, side effects, alternatives discussed w/pt: Yes Patient agreeable to treatment: Yes (2) Polysubstance (excluding opioids) dependence Current visit: Yes Status: Acute Risks, benefits, side effects, alternatives discussed w/pt: Yes Patient agreeable to treatment: Yes (3) PTSD (post-traumatic stress disorder) Current visit: Yes Status: Chronic Risks, benefits, side effects, alternatives discussed w/pt: Yes Patient agreeable to treatment: Yes Consult Discharge Plan - Plan Referrals: [facility] [Outside] - 09/14/17 10:30 am (The above appointment is with Zenaida Vargas, counselor at [facility]. Your first appointment will be very thorough and the total appointment time will take between two and three hours. You will be completing paperwork, meeting with a counselor and a nurse, and developing a treatment plan. You will receive follow- up appointments for on-going services , which could include community support, mental health and substance abuse counseling, groups/partial hospitalization programming, medication assisted treatment, and psychiatric medication management. Please bring the following with you to your first visit to the clinic: 1) proof of household income (two consecutive pay stubs, social security award letter, bank statement, statement letter from [facility], child support statement, IRS 1040 or W2 form, or a statement from the person who financially supports you stating they help provide for your basic needs), 2) proof of residency (drivers license, a piece of mail showing your address, a statement from person you live with verifying you live at their address), 3) your social security card, 4) photo ID, and 5) your insurance card (if you have commercial insurance you must call to obtain a prior authorization number before you arrive to your first appointment). If you do not bring these items, you will not be seen.) Judi Ruiz [Advanced Practice Nurse] - 09/15/17 11:00 am (The above appointment is with Judi Ruiz CNP, at [facility]. This appointment is to establish you with a primary care provider. Your needs for medication and/or Vivitrol will be assessed and treated as indicated as well. Please arrive 15 minutes early to complete paperwork. Please bring your insurance card, photo ID and list of current medications to your first appointment. The above appointment(s) reflects first availability. You may contact the office regularly to check for cancellations that may allow you to be seen sooner.) Psychiatry Exam - Constitutional Vitals: Temp Pulse Resp BP Pulse Ox 97.9 F 76 16 110/79 96 09/10/17 09:00 09/10/17 09:00 09/10/17 09:00 09/10/17 09:00 09/05/17 09:00 General appearance: age & developmentally appropriate - Musculoskeletal Gait: normal Station: relaxed Strength & Tone: normal for patient - Psychiatric Patient Orientation: Yes Person, Yes Time, Yes Place Level of alertness: Alert Behavior: cooperative, anxious Psychomotor activity: Normal Eye Contact: Maintains Eye Contact Mood Description: Anxious Affect description: congruent with mood Speech Volume: Normal Speech pattern: coherent Language & Vocabulary: consistent with education Thought Process: Intact Thought Content: Yes Guilt Attention Span Ability: Capable of Focused Attention Memory Description: Grossly Intact Patient Reliability: Reliable Historian Fund of knowledge: Yes average Intelligence Estimate: Average Judgment: Fair Insight: Minimal
[2017-09-10] MEDS: lamoTRIgine 25 MG TABLET PO SCH (21:30)
[2017-09-10] MEDS: Ibuprofen 400 MG TABLET PO PRN (21:30)
[2017-09-11] MEDS: Nicotine 21 MG PATCH.TD24 TD SCH (08:40)
[2017-09-11] MEDS: BuPROPion SR (12 HR) 100 MG TABLET PO SCH ×2 (08:40→20:57)
[2017-09-11] MEDS: Sulfamethoxazole/Trimeth DS 1 EACH TABLET PO SCH (08:40)
[2017-09-11] MEDS: Ibuprofen 400 MG TABLET PO PRN (12:22)
--- NOTE | 2017-09-11 17:35 | Psychiatry Progress Note ---
Date of Encounter: 09/11/17 Time of Encounter: 16:40 Subjective Interval history: Patient is seen for follow-up. Case discussed with treatment team. She is doing much better and taking Seroquel. Denies having any withdrawal symptoms. Sleep and appetite stable and participate in groups and activities. Discharge plans are ongoing for outpatient therapy and rehabilitation. Review of Systems Psychiatric: Reports: depression, anxiety, abnormal sleep pattern, irritability , mood swings (patient denies any medical problems except scoliosis.) Results - Vital Signs Vital Signs: Temp Pulse Resp BP Pulse Ox 97.8 F 94 16 108/77 96 09/11/17 09:00 09/11/17 09:00 09/11/17 09:00 09/11/17 09:00 09/05/17 09:00 Assessment and Plan (1) Bipolar disorder, curr episode depressed, severe, w/psychotic features Current visit: Yes Status: Acute Plan: Continue hospitalization, Close observation, Suicide Precautions per unit protocol, Encourage participation in unit milieu, Group Therapy, Monitor sleep, Monitor appetite Risks, benefits, side effects, alternatives discussed w/pt: Yes Patient agreeable to treatment: Yes Consult Discharge Plan - Plan Instructions: Bipolar Disorder (DC), Post Traumatic Stress Disorder (DC) Referrals: [facility] [Outside] - 09/14/17 10:30 am (The above appointment is with Zenaida Vargas, counselor at [facility]. Your first appointment will be very thorough and the total appointment time will take between two and three hours. You will be completing paperwork, meeting with a counselor and a nurse, and developing a treatment plan. You will receive follow- up appointments for on-going services , which could include community support, mental health and substance abuse counseling, groups/partial hospitalization programming, medication assisted treatment, and psychiatric medication management. Please bring the following with you to your first visit to the clinic: 1) proof of household income (two consecutive pay stubs, social security award letter, bank statement, statement letter from [facility], child support statement, IRS 1040 or W2 form, or a statement from the person who financially supports you stating they help provide for your basic needs), 2) proof of residency (drivers license, a piece of mail showing your address, a statement from person you live with verifying you live at their address), 3) your social security card, 4) photo ID, and 5) your insurance card (if you have commercial insurance you must call to obtain a prior authorization number before you arrive to your first appointment). If you do not bring these items, you will not be seen.) Judi Ruiz [Advanced Practice Nurse] - 09/15/17 11:00 am (The above appointment is with Judi Ruiz CNP, at [facility] within [facility]. This appointment is to establish you with a primary care provider. Your needs for medication and/or Vivitrol will be assessed and treated as indicated as well. Please arrive 15 minutes early to complete paperwork. Please bring your insurance card, photo ID and list of current medications to your first appointment. The above appointment(s) reflects first availability. You may contact the office regularly to check for cancellations that may allow you to be seen sooner.) Psychiatry Exam - Constitutional Vitals: Temp Pulse Resp BP Pulse Ox 97.8 F 94 16 108/77 96 09/11/17 09:00 09/11/17 09:00 09/11/17 09:00 09/11/17 09:00 09/05/17 09:00 General appearance: age & developmentally appropriate, well-groomed, well- nourished - Musculoskeletal Gait: normal Station: relaxed Strength & Tone: normal for patient - Psychiatric Patient Orientation: Yes Person, Yes Time, Yes Place Level of alertness: Alert Behavior: calm, cooperative Psychomotor activity: Normal Eye Contact: Maintains Eye Contact Mood Description: Euthymic/stable Affect description: congruent with mood, full range Speech Volume: Normal Speech pattern: normal rate, normal rhythm, normal tone, fluent, spontaneous Language & Vocabulary: consistent with education Thought Process: Linear, Goal Oriented Thought Content: No Suicidal ideation, No Homicidal ideation, No Overt delusions Perceptual Disturbances: No Auditory hallucinations, No Visual hallucinations Attention Span Ability: Capable of Focused Attention Memory Description: Grossly Intact Patient Reliability: Reliable Historian Fund of knowledge: Yes abstraction ability, Yes aware of current events Intelligence Estimate: Average Judgment: Limited Insight: Partial
[2017-09-11] MEDS: lamoTRIgine 25 MG TABLET PO SCH (20:57)
[2017-09-11] MEDS: hydrOXYzine pamoate 25 MG CAPSULE PO PRN (20:58)
[2017-09-12] MEDS: Nicotine 21 MG PATCH.TD24 TD SCH (08:39)
[2017-09-12] MEDS: BuPROPion SR (12 HR) 100 MG TABLET PO SCH (08:39)
[2017-09-12] MEDS: Sulfamethoxazole/Trimeth DS 1 EACH TABLET PO SCH (08:39)
[2017-09-12 10:05] VITALS: BP 102/57
--- NOTE | 2017-09-12 10:54 | Discharge Summary ---
Date of Encounter: 09/12/17 Time of Encounter: 10:51 Diagnosis - Discharge Diagnosis (1) Bipolar disorder, curr episode depressed, severe, w/psychotic features Status: Acute Medications - Discharge Medications Prescriptions: BuPROPion SR (12 HR) [Wellbutrin SR] 100 mg PO BID #60 tablet.er Quetiapine Fumarate [Seroquel] 100 mg PO HS #30 tablet BuPROPion SR (12 HR) [Wellbutrin SR] 100 mg PO BID #60 tablet.er 09/12/17 [Rx] Quetiapine Fumarate [Seroquel] 100 mg PO HS #30 tablet 09/12/17 [Rx] 3 Allergy/AdvReac Type Severity Reaction Status Date / Time Penicillins [PCN] Allergy See Verified 06/11/17 19:24 Comments Provider Date of admission: 09/05/17 13:03 Primary care physician: PCP NONE Discharging clinician: Varinder Montez Psychiatry Exam - Constitutional Vitals: Temp Pulse Resp BP Pulse Ox 97.4 F L 96 16 102/57 96 09/12/17 09:00 09/12/17 09:00 09/12/17 09:00 09/12/17 09:00 09/05/17 09:00 General appearance: age & developmentally appropriate, well-groomed, well- nourished - Musculoskeletal Gait: normal Station: relaxed Strength & Tone: normal for patient - Psychiatric Patient Orientation: Yes Person, Yes Time, Yes Place Level of alertness: Alert Behavior: calm, cooperative Psychomotor activity: Normal Eye Contact: Maintains Eye Contact Mood Description: Euthymic/stable Affect description: congruent with mood, full range Speech Volume: Normal Speech pattern: normal rate, normal rhythm, normal tone, fluent, spontaneous Language & Vocabulary: consistent with education Thought Process: Linear, Goal Oriented Thought Content: No Suicidal ideation, No Homicidal ideation, No Overt delusions Perceptual Disturbances: No Auditory hallucinations, No Visual hallucinations Attention Span Ability: Capable of Focused Attention Memory Description: Grossly Intact Patient Reliability: Reliable Historian Fund of knowledge: Yes abstraction ability, Yes aware of current events Intelligence Estimate: Average Judgment: Limited Insight: Partial Hospital Course Hospital course: Ms. Mishra is a 22 year old female admitted for excessive patient will bipolar disorder with psychosis and substance abuse. For details of the admission please see H&P On the unit the patient was started on Wellbutrin and Seroquel she tolerates the medication she reported improved sleep and appetite she denied any auditory or visual hallucinations she did not have any suicidal ideation she participated in groups and activities. She was educated about bipolar disorder and substance abuse. Discharge plans were made for outpatient treatments including evaluation for Vivitrol injection monthly. On discharge patient was medically stable, not suicidal or psychotic, tolerating medication without any side effects. She is discharged in stable condition. - Time Spent with Patient Total time spent providing and/or coordinating discharge services: Assessment and Plan - Patient/Caregiver Discharge Instructions Activity: resume usual activities as tolerated Diet: regular diet - Follow up Plan Follow up with: [facility] [Outside] - 09/14/17 10:30 am (The above appointment is with Zenaida Vargas, counselor at [facility]. Your first appointment will be very thorough and the total appointment time will take between two and three hours. You will be completing paperwork, meeting with a counselor and a nurse, and developing a treatment plan. You will receive follow- up appointments for on-going services , which could include community support, mental health and substance abuse counseling, groups/partial hospitalization programming, medication assisted treatment, and psychiatric medication management. Please bring the following with you to your first visit to the clinic: 1) proof of household income (two consecutive pay stubs, social security award letter, bank statement, statement letter from [facility], child support statement, IRS 1040 or W2 form, or a statement from the person who financially supports you stating they help provide for your basic needs), 2) proof of residency (drivers license, a piece of mail showing your address, a statement from person you live with verifying you live at their address), 3) your social security card, 4) photo ID, and 5) your insurance card (if you have commercial insurance you must call to obtain a prior authorization number before you arrive to your first appointment). If you do not bring these items, you will not be seen.) Judi Ruiz [Advanced Practice Nurse] - 09/15/17 11:00 am (The above appointment is with Judi Ruiz CNP, at [facility] within [facility]. This appointment is to establish you with a primary care provider. Your needs for medication and/or Vivitrol will be assessed and treated as indicated as well. Please arrive 15 minutes early to complete paperwork. Please bring your insurance card, photo ID and list of current medications to your first appointment. The above appointment(s) reflects first availability. You may contact the office regularly to check for cancellations that may allow you to be seen sooner.) Functional capacity at discharge: independent ambulation Overall status at discharge: Stable Disposition: Home, Self-Care Quality - Multiple Antipsychotics Patient discharged on 2 or more antipsychotic medications: No Procedures - Procedures Procedures: Medication Management, Crisis Stabilization, Supportive Therapy, Group Therapy, Psychoeducational Therapy
== END 2017-09-12 13:15 | disposition home or self-care (01) | DRG 753 ==
LOC: EMEROO 03:37 → 1ANU 13:03 → SUATTDRO 13:03 → 1ANU 13:38
PROVIDERS: ADMIT Psychiatry & Neurology Psychiatry; ATTEND Psychiatry & Neurology Psychiatry

== ENCOUNTER → 2018-11-28 23:33 | Observation (INO) ==
[2018-11-28 22:06] LABS: Bilirubin,Urine Negative (Negative); Blood,Urine Small (Negative); Clarity,Urine Clear (Clear); Color,Urine Yellow (Yellow); Glucose,Urine (UA) Normal (Normal); Ketones,Urine Negative (Negative); Leukocyte Esterase,Urine Small (Negative); Nitrite,Urine Negative (Negative); Protein,Urine Trace mg/dL (Neg-Trace); Urobilinogen,Urine Normal (Normal)
[2018-11-28 22:08] LABS: Bacteria,Urine Few per hpf (None-Few); Hyaline Casts,Urine None Seen per lpf (None-Few); RBC,Urine 30-50 per hpf (0-3); Squamous Epithelial Cell,Urine Many per lpf (None-Few)
[2018-11-28 22:19] LABS: Amphetamine Screen,Urine Negative ng/mL (Cutoff=1000); Barbiturate Screen,Urine Negative ng/mL (Cutoff=200); Benzodiazepines Screen,Urine Negative ng/mL (Cutoff=200); Cannabinoid Screen,Urine Negative ng/mL (Cutoff = 50); Cocaine Screen,Urine Negative ng/mL (Cutoff= 300); Opiate Screen,Urine Negative ng/mL (Cutoff=300); Phencyclidine Screen,Urine Negative ng/mL (Cutoff=25)
--- NOTE | 2018-11-28 23:42 | OB/GYN Progress Note ---
Date of Encounter: 11/28/18 Time of Encounter: 23:40 - Assessment and Plan (1) 37 weeks gestation of Current Visit: Yes Status: Acute (2) Uterine contractions Current Visit: Yes Status: Acute No cervical change from office exam and on serial cervical exams. Patient states contractions are unchanged from arrival, discharged home with labor and when to return to triage precautions. Patient in agreement with plan of her purse to be discharged over continued monitoring Subjective - Subjective Interval history: 37+ recessed recent presents to triage with complaints of contractions. Patient states contractions began approximately 3 hours ago. Reports good movement, denies vaginal bleeding or leaking of fluid. Antepartum ROS: movement normal, contractions, no loss of fluid, no vaginal bleeding Objective - Vital Signs Vital Signs: Intake and Output 11/28/18 11/28/18 11/28/18 07:59 15:59 23:59 Other: Weight 77.6 kg Patient Weight 11/28/18 23:59 Weight 77.6 kg - Exam FHR: auscultation normal FHR comments: Baseline 120 per RN Cervical dilation: 350/-2 per RN - Labs Labs: Abnormal lab results Ur Specific [place] 1.030 (1.010-1.025) H 11/28/18 21:56 Small (Negative) H 11/28/18 21:56 Ur Leukocyte Esterase Small (Negative) H 11/28/18 21:56 30-50 per hpf (0-3) H 11/28/18 21:56 5-15 per hpf (0-3) H 11/28/18 21:56 Ur Squamous Epith Cells Many per lpf (None-Few) H 11/28/18 21:56 Ur Culture Indicated? YES (NO) A 11/28/18 21:56
== END | disposition home or self-care (01) ==
LOC: 1NENULAB
PROVIDERS: ADMIT Advanced Practice Midwife; ATTEND Advanced Practice Midwife

== ENCOUNTER 2018-12-09 05:44 | Inpatient (IN) ==
[2018-12-09 05:27] LABS: Amphetamine Screen,Urine Negative ng/mL (Cutoff=1000); Barbiturate Screen,Urine Negative ng/mL (Cutoff=200); Benzodiazepines Screen,Urine Negative ng/mL (Cutoff=200); Cannabinoid Screen,Urine Negative ng/mL (Cutoff = 50); Cocaine Screen,Urine Negative ng/mL (Cutoff= 300); Opiate Screen,Urine Negative ng/mL (Cutoff=300); Phencyclidine Screen,Urine Negative ng/mL (Cutoff=25)
[2018-12-09] MEDS ORDERED: *HR* Nalbuphine 10 MG/ML AMPUL IVP PRN (06:09)
[2018-12-09] MEDS ORDERED: Ondansetron 4 MG/2 ML VIAL IVP PRN (06:09)
[2018-12-09] MEDS ORDERED: Naloxone 0.4 MG/ML INJ IVP PRN (06:09)
[2018-12-09] MEDS ORDERED: Famotidine 20 MG/2 ML VIAL IVP PRN (06:09)
[2018-12-09] MEDS ORDERED: Metoclopramide 10 MG/2 ML VIAL IVP PRN (06:09)
[2018-12-09] MEDS ORDERED: Ringers Solution, Lactated 1,000 ML IVC SCH (06:15)
--- NOTE | 2018-12-09 06:23 | OB/GYN History & Physical ---
Date of Encounter: 12/09/18 Time of Encounter: 06:21 Assessment and Plan (1) 39 weeks gestation of Current visit: Yes Status: Acute admitted for delivery (2) Tobacco use affecting in third trimester, antepartum Current visit: Yes Status: Acute Counseled on smoking cessation (3) History of drug abuse Current visit: Yes Status: Acute Cord stat 3 day hold History of Present Illness Chief complaint: spontaneous labor HPI: Ms. Mishra is a 23 year old female @ 39w2d presents to labor and delivery with complaints of contractions. Patient denies LOF or VB. Patient reports good movement. Patient denies any complications with current and receives care with Dr. Davidson. Blood type: O Positive Rubella: Immune Hep B: Nonreactive GBS: Negative Past Med Surg Social Fam HX - Past Medical History Source: patient Medical history: hepatitis Additional medical history: Hep C, prescription drug abuse Psychiatric history: anxiety, bipolar, PTSD - Past Surgical History Surgical History: non-contributory, other Additional surgical history: object removed from arm, tonsil sx, tubal removed - Social History Smoking Status: Current every day smoker Packs per day: 6 cigs Smokeless Tobacco Status: No Alcohol use: none Drug use: none Current living situation: Home - Independent Activity Level: Independent ambulation Recent Out of Country Travel Within the Last 8 Weeks: No Exposure or Possible Exposure to Illness During Travel: No - Family History Mother Paternal Adopted: No Family Member Ethnicity: Non- Living Status: Still Living Hx Family Cardiac Disorders: No Hx Family Respiratory Disorders: No Hx Family Cancer: No Hx Family GI Disorders: No Hx Family Endocrine Disorder: No Hx Family Neuromuscular Disorders: No Hx Family Neurologic Disorders: No Hx Family HEENT Disorders: No Hx Family Autoimmune Disorders: No Hx Family Psychosocial Disorders: Yes (mental health issues) Mother Family Member Ethnicity: Non- Living Status: Still Living Hx Family Cardiac Disorders: No Hx Family Respiratory Disorders: No Hx Family Cancer: No Hx Family GI Disorders: No Hx Family Endocrine Disorder: No Hx Family Neuromuscular Disorders: No Hx Family Neurologic Disorders: No Hx Family HEENT Disorders: No Hx Family Autoimmune Disorders: No Obstetrical History - Pregnancies : 3 Para: 1 Term: 0 : 1 Ab's: 1 Livin Medications and Allergies Caplet 1 tab PO DAILY 07/17/18 [History] Allergy/AdvReac Type Severity Reaction Status Date / Time Penicillins [PCN] Allergy See Verified 12/09/18 05:07 Comments sulfamethoxazole AdvReac Vomiting Verified 12/09/18 05:07 [From Bactrim] trimethoprim [From Bactrim] AdvReac Vomiting Verified 12/09/18 05:07 Review of System OB - Constitutional Constitutional ROS IM: no chills, no fever(s), no headache(s) - Cardiovascular Cardiovascular: no chest pain, no lightheadedness, no palpitations, no pedal edema - Respiratory Respiratory: no dyspnea - Gastrointestinal Gastrointestinal: no abdominal pain, no constipation, no cramping, no heartburn, no nausea, no vomiting - Genitourinary Genitourinary: no abnormal vaginal bleeding, no difficulty urinating, no urinary frequency, no urinary hesitancy, no urinary urgency, no vaginal discharge, no vaginal dryness, no vaginal odor, no vaginal pruritis Exam - Constitutional Constitutional: well developed, well nourished, no acute distress, average body habitus - HEENT HEENT: Normocephaly, Mucus Membranes Moist - Neck Neck exam: full ROM, supple - Lungs Respiratory exam: CTAB - Cardiovascular Cardiovascular exam: RRR, +S1, +S2 - Abdomen Abdomen: Present: bowel sounds normal, gravid, non tender - Extremities Extremities exam: full ROM, normal inspection Deep Tendon Reflex Grade: 2+ Normal - Cervix Dilation: 5 (per RN) Station: -1 - Uterus Uterus exam: Present: normal size, normal contour - Anus/Rectum Anus/Rectum: Present: normal perianal skin - Comments Comments: FHR 125 bpm moderate variability +15x15 accels no decels noted. Contractions 1.5-2.5 min apart. Cat. 1 tracing Results All other labs normal. - VTE Reasons for not Prescribing Prophylaxis: Treatment not Indicated - Low risk for VTE
[2018-12-09 06:37] LABS: Basophils # 0.1 K/mcL (0.0-0.2); Basophils % 0.5 %; Eosinophils # 0.3 K/mcL (0.0-0.6); Eosinophils % 1.9 %; Hemoglobin 12.1 g/dL (11.5-15.4); Immature Granulocytes % 0.9 % (0-4); Lymphocytes # 4.3 K/mcL (0.6-4.6); Mean Corpuscular HGB Conc 34.6 g/dL (31.6-35.5); Mean Corpuscular Hemoglobin 32.5 pg (28.0-33.3); Mean Corpuscular Volume 94.1 fL (83.0-100.0); Mean Platelet Volume 10.2 fL (9.4-12.4); Monocytes # 0.8 K/mcL (0.0-1.3); Monocytes % 5.3 %; Neutrophils # 9.3 K/mcL (1.6-8.9); Platelet Count 396 K/mcL (140-400); Red Blood Count 3.72 M/mcL (3.82-4.97); Segmented Neutrophils % 62.4 %; White Blood Count 14.9 K/mcL (4.3-11.1)
[2018-12-09] MEDS ORDERED: Epidural Premix (fent/bupiv) 110 ML EP ONE (07:30)
--- NOTE | 2018-12-09 08:05 | Anesthesia Evaluation PreOp ---
Date of Encounter: 12/09/18 Time of Encounter: 08:03 - Past History Planned Operation: LEYLA Cardiac History: Denies any Significant Hx Pulmonary History: Smoker [employer]INE [employer]ET[employer] RESEARCHER History: Denies Any Significant HX Other Medical History: Other (Scoliosis, drug abuse in 2018) Anesthesia History: No Prior Anesthetic Complications, Past Anesthesia Alcohol Use: none Drug use: none Medications and Allergies Caplet 1 tab PO DAILY 07/17/18 [History] Allergy/AdvReac Type Severity Reaction Status Date / Time Penicillins [PCN] Allergy See Verified 12/09/18 05:07 Comments sulfamethoxazole AdvReac Vomiting Verified 12/09/18 05:07 [From Bactrim] trimethoprim [From Bactrim] AdvReac Vomiting Verified 12/09/18 05:07 - Meds/Allergy Pre-op Review Medications Reviewed: Yes Allergies Reviewed: Yes Beta Blockers on Current Med List: No Anesthesia Results - Labs 12/09/18 06:05 Anesthesia Exam O2 Sat Height 1.57 m Weight 76.204 kg NPO (# of Hours): 8 Pain Scale: 9 Pain Scale Used: Numeric (1 - 10) - HEENT Pupil (Motor): Pupils equal Mallampati: II Teeth: Normal Oral Opening: Greater than 3 - SWINE GENETICS RESEARCHER LOC: Oriented [employer] RESEARCHER Motor: Normal RUE, Normal LUE, Normal RLE, Normal LLE, Normal Face [employer] RESEARCHER Sensory: Normal: RUE, LUE, RLE, LLE, Face - Cardiac Rhythm: Regular Murmur: None JVD: No Carotid Bruit: No - Pulmonary Breath Sounds: bilateral Clear Respiratory Effort: Symmetrical Anesthesia Assess/Plan ASA Score: 2 Level of consciousness: Cooperative, Oriented Anesthetic Plan: General, Epidural Autologous Blood: Yes Monitoring Plan: Standard Monitors
--- NOTE | 2018-12-09 08:06 | Anesthesia Procedures ---
Date of Encounter: 12/09/18 Time of Encounter: 08:05 Procedures: Anesthesia - Epidural/Spinal Patient ID/Chart reviewed: Yes Patient examined: Yes OB Eval: Gestational age: 39.1 OB Eval: : 3 OB Eval: Hx Para: 1 OB Eval: Dilated at (cm): 5 OB Eval: Contractions: Non-stressed pattern Consent Obtained: Yes Supplemental Oxygen: None/Room Air Site Prep: Aseptic Technique, Sterile prep and drape, Povidone-Iodine 1% Patient position: upright Local Anesthetic: Lidocaine 1% Amount of Local Anesthetic used: 3 Touhy Needle Gauge: 18 Touhy Needle Depth (cm): 7 Catheter Depth at Skin (cm): 20 Test Dose (1.5% Lido + Epi): Volume given (mls): 5 Test Dose Result: Negative Loading Dose: Other: 10mls of epidural pharm bag Loading Dose Administered: Thru Catheter Infusion Med: 0.125% Bupivacaine w/ 2 mcg/ml Fentanyl Infusion Rate (mls/hr): 14 ([id number]) Catheter Secured in Place: Tegaderm, Tape Interspace Used: L3-L4 Loss of Resistance (ONUR): Yes Blood: No CSF: No Paresthesia: No Procedure: pt tolerated procedure well. no complications. vss. fhr stable.
[2018-12-09] MEDS ORDERED: Epidural Premix (fent/bupiv) 110 ML EP SCH (08:15)
--- NOTE | 2018-12-09 08:39 | OB Labor Progress Note ---
Date of Encounter: 12/09/18 Time of Encounter: 08:37 Labor Progress Note - Subjective Subjective: Patient now comfortable with epidural in place. - Cervix Cervix: 6/100/-1 - Heart Tones Heart Tones: FHR 135 bpm, moderate variability, no accels, no decels. - [place]: q2 min - Interventions Interventions: SVE AROM for large amount of clear fluid - Plan Physician notified: Yes Physician notified details: Dr. Pineda aware of SVE Plan: Frequent position changes with peanut ball Anticipate
[2018-12-09] MEDS ORDERED: Nicotine 7 MG PATCH.TD24 TD SCH (09:00)
--- NOTE | 2018-12-09 11:14 | OB/GYN Procedure Note ---
Delivery - Delivery Date: 12/09/18 Provider: Cate Churchill Intrapartum events: none Delivery induction: none Delivery monitor: external FHT, external uterine Anesthesia: epidural Quantitated Blood Loss: 50 - (s) Infant A Infant Delivery Date: 12/09/18 Infant Delivery Time: 10:32 Presentation: vertex Position: CLARA Route of delivery: Gender: Female Viability: Viable at 1 minute: 8 at 5 mins: 9 Shoulder Dystocia: not encountered Specimens collected: cord blood Placenta: spontaneous Cord: nuchal cord, 3 umbilical vessels, delivered through nuchal - Repair Episiotomy: none Laceration Description: Periurethral, Vaginal - Complications Delivery complications: none Delivery comments: Called to room for delivery. Under maternal effort, spontaneous delivery of viable female over intact perineum. Nuchal cord was noted after delivery of the head and was delivered through with somersault maneuver. Small vaginal laceration noted and was bleeding so it was repaired with one [id number] stitch. Periurethral laceration noted to be hemostatic and was not repaired. placed on maternal abdomen for drying and stimulation. Cord clamped and cut after pulsation ceased. Spontaneous delivery of intact placenta, EBL 50 mls. No shoulder dystocia or meconium encountered. Mother and infant in kangaroo care for 2 hour recovery. - Disposition Mom disposition: stable in LDR [place] disposition: stable in LDR
[2018-12-09] MEDS ORDERED: Oxytocin 20 units/ LR 1000 mL 20 UNIT/1,000 ML BAG IVC SCH (12:52)
[2018-12-09] MEDS ORDERED: Benzocaine/Menthol 56 GM AEROSOL SPRAY TP PRN (12:52)
[2018-12-09] MEDS ORDERED: Acetaminophen 325 MG TABLET PO PRN (12:52)
[2018-12-09] MEDS ORDERED: Measles/Mumps/Rubella Vacc 0.5 ML VIAL SQ PRN (12:52)
[2018-12-09] MEDS ORDERED: Lanolin 7 G OINT...G. TP PRN (12:52)
[2018-12-09] MEDS: Ibuprofen 600 MG TABLET PO PRN (20:27)
[2018-12-10] MEDS: Ibuprofen 600 MG TABLET PO PRN (03:29)
[2018-12-10 08:16] VITALS: BP 111/75
[2018-12-10] MEDS ORDERED: Prenatal Vit/FA 1 EACH TABLET PO SCH (09:00)
--- NOTE | 2018-12-10 09:20 | Discharge Summary ---
Date of Encounter: 12/10/18 Time of Encounter: 09:18 - Discharge Diagnosis (1) Status post vaginal delivery Priority: Primary Status: Acute Comments: Stable, pain well managed, bleeding minimal, breast feeding, desires discharge to guest status - Discharge Medications Prescriptions: New Acetaminophen [Tylenol] 650 mg PO Q6HR PRN tablet PRN Reason: Mild Pain Ibuprofen [Motrin] 600 mg PO Q6HR PRN #60 tablet PRN Reason: Cramping Docusate [Colace] 100 mg PO BID #60 capsule Benzocaine/Menthol Elizabeth [Dermoplast Elizabeth] 1 appl TP QID PRN aerosol PRN Reason: See Comments Lanolin [Lansinoh] 1 appl TP TID PRN oint...g. PRN Reason: Sore Nipples Continued Caplet 1 tab PO DAILY Home Medications: Caplet 1 tab PO DAILY 07/17/18 [History] Acetaminophen [Tylenol] 650 mg PO Q6HR PRN tablet 12/10/18 [Rx] Benzocaine/Menthol Elizabeth [Dermoplast Elizabeth] 1 appl TP QID PRN aerosol 12/10/18 [Rx] Docusate [Colace] 100 mg PO BID #60 capsule 12/10/18 [Rx] Ibuprofen [Motrin] 600 mg PO Q6HR PRN #60 tablet 12/10/18 [Rx] Lanolin [Lansinoh] 1 appl TP TID PRN oint...g. 12/10/18 [Rx] Allergies/Adverse Reactions: Allergy/AdvReac Type Severity Reaction Status Date / Time Penicillins [PCN] Allergy See Verified 12/09/18 05:07 Comments sulfamethoxazole AdvReac Vomiting Verified 12/09/18 05:07 [From Bactrim] trimethoprim [From Bactrim] AdvReac Vomiting Verified 12/09/18 05:07 Data Procedures and tests throughout hospitalization: Laboratory Tests 12/09/18 12/09/18 05:10 06:05 WBC 14.9 H RBC 3.72 L Hgb 12.1 Hct 35.0 L MCV 94.1 MCH 32.5 MCHC 34.6 RDW 12.0 Plt Count 396 MPV 10.2 Immature Gran % 0.9 Seg Neutrophils % 62.4 Lymphocytes % 29.0 Monocytes % 5.3 Eosinophils % 1.9 Basophils % 0.5 Neutrophils # 9.3 H Lymphocytes # 4.3 Monocytes # 0.8 Eosinophils # 0.3 Basophils # 0.1 Urine Opiates Screen Negative Ur Barbiturates Screen Negative Ur Phencyclidine Scrn Negative Ur Amphetamines Screen Negative U Benzodiazepines Scrn Negative Urine Cocaine Screen Negative U Marijuana (THC) Screen Negative Ur Drug Screen Interp See Below Date of admission: 12/09/18 06:09 Primary care physician: PCP NONE Consults: 12/09/18 06:20 Consult to Line [employer] ([facility]) [CONS] Routine Reason For Exam: Reason for SW Consult: does not have custody of her other child 12/09/18 12:52 Consult to [employer] [CONS] Routine Comment: Vaginal delivery, consult needed Consult to [employer] [CONS] Routine Reason for SW Consult: Hep C, previous drug abuse. Discharging clinician: Pamela Avery Anticipated date of discharge: 12/10/18 - Patient Status Disposition: Home, Self-Care Condition: Good Functional capacity at discharge: independent ambulation Overall status at discharge: patient is progressing back to baseline - Discharge Instructions Follow Up With: TANMAY,PCP [Primary Care Provider] - Pamela Avery CNM [Advanced Practice Nurse] - - Diet and Activity Activity: resume usual activities as tolerated Diet: regular diet Hospital Course Reason for admission: active labor, IUP at term Delivery: Episiotomy: none Laceration: other complications: none Discharge diagnosis: IUP at term delivered [place] baby: female Hospital course: Delivery - Delivery Date: 12/09/18 Provider: Cate Churchill Intrapartum events: none Delivery induction: none Delivery monitor: external FHT, external uterine Anesthesia: epidural Quantitated Blood Loss: 50 - (s) A Infant Delivery Date: 12/09/18 Infant Delivery Time: 10:32 Presentation: vertex Position: CLARA Route of delivery: Gender: Female Viability: Viable at 1 minute: 8 at 5 mins: 9 Shoulder Dystocia: not encountered Specimens collected: cord blood Placenta: spontaneous Cord: nuchal cord, 3 umbilical vessels, delivered through nuchal - Repair Episiotomy: none Laceration Description: Periurethral, Vaginal - Complications Delivery complications: none Delivery comments: Called to room for delivery. Under maternal effort, spontaneous delivery of viable female infant over intact perineum. Nuchal cord was noted after delivery of the head and was delivered through with somersault maneuver. Small vaginal laceration noted and was bleeding so it was repaired with one [id number] stitch. Periurethral laceration noted to be hemostatic and was not repaired. Infant placed on maternal abdomen for drying and stimulation. Cord clamped and cut after pulsation ceased. Spontaneous delivery of intact placenta, EBL 50 mls. No shoulder dystocia or meconium encountered. Mother and in kangaroo care for 2 hour recovery. - Disposition Mom disposition: stable in PP and appropriate for discharge Time Attestation: Total time spent providing and/or coordinating discharge services: Time Spent: Less than 30 minutes Exam - Constitutional Vitals: Temp Pulse Resp BP Pulse Ox 98.0 F 65 14 111/75 98 12/10/18 08:15 12/10/18 08:15 12/10/18 08:15 12/10/18 08:15 12/10/18 08:15 General appearance IM: A&O X 3 - Respiratory Respiratory exam: Present: CTAB - Cardiovascular Cardiovascular exam IM: Present: RRR - GI/Abdominal GI/Abdominal exam IM: soft - Uterine Tone: Firm Uterus Position: 1 Finger Below Umbilicus - Extremities Exam Extremities exam IM: Present: normal capillary refill, normal inspection - Neurological Exam Neurological exam: normal gait, oriented X3 - Psychiatric Additional comments: reports good mood
== END 2018-12-10 10:30 | disposition home or self-care (01) | DRG 560 ==
LOC: 1NENULAB → 1NENUOBS 12:39
PROVIDERS: ADMIT Advanced Practice Midwife; ATTEND Advanced Practice Midwife

== ENCOUNTER → 2019-11-06 18:28 | Observation (INO) ==
[2019-11-06 18:15] VITALS: BP 109/63
== END | disposition home or self-care (01) ==
LOC: 1NENULAB
PROVIDERS: ADMIT Obstetrics & Gynecology; ATTEND Obstetrics & Gynecology

== ENCOUNTER 2020-02-23 09:54 | Observation (INO) ==
[2020-02-23 10:32] LABS: Bacteria,Urine Few per hpf (None-Few); Bilirubin,Urine Negative (Negative); Blood,Urine Trace (Negative); Clarity,Urine Clear (Clear); Color,Urine Light-Yellow (Yellow); Glucose,Urine (UA) Normal (Normal); Ketones,Urine Negative (Negative); Leukocyte Esterase,Urine Small (Negative); Mucus,Urine Few per lpf (None-Few); Nitrite,Urine Negative (Negative); PH,Urine 7.5 pH Units (5.0-8.0); Protein,Urine Negative (Neg-Trace); Specific Gravity,Urine 1.015 (1.010-1.025); Sperm,Urine Present (None Seen); Squamous Epithelial Cell,Urine Few per hpf (None-Few); Urobilinogen,Urine Normal (Normal); WBC,Urine 0-3 per hpf (0-3)
[2020-02-23 12:22] LABS: Candida DNA Not Detected (Not Detect); Gardnerella DNA DETECTED (Not Detect); Trichomonas DNA Not Detected (Not Detect)
== END 2020-02-23 11:20 | disposition home or self-care (01) ==
LOC: 1NENULAB
PROVIDERS: ADMIT Obstetrics & Gynecology; ATTEND Obstetrics & Gynecology

== ENCOUNTER → 2020-04-18 11:58 | Observation (INO) ==
[2020-04-18 11:37] LABS: Bacteria,Urine Few per hpf (None-Few); Bilirubin,Urine Negative (Negative); Blood,Urine Moderate (Negative); Clarity,Urine Clear (Clear); Color,Urine Light-Yellow (Yellow); Glucose,Urine (UA) Normal (Normal); Ketones,Urine Negative (Negative); Leukocyte Esterase,Urine Negative (Negative); Mucus,Urine Few per lpf (None-Few); Nitrite,Urine Negative (Negative); PH,Urine 6.5 pH Units (5.0-8.0); Protein,Urine Negative (Neg-Trace); RBC,Urine TNTC per hpf (0-3); Squamous Epithelial Cell,Urine Few per hpf (None-Few); Urobilinogen,Urine Normal (Normal)
== END | disposition home or self-care (01) ==
LOC: 1NENULAB
PROVIDERS: ADMIT Obstetrics & Gynecology; ATTEND Obstetrics & Gynecology

== ENCOUNTER → 2020-05-06 14:17 | Observation (INO) ==
[2020-05-06 13:40] LABS: Bacteria,Urine Few per hpf (None-Few); Bilirubin,Urine Negative (Negative); Blood,Urine Large (Negative); Clarity,Urine Turbid (Clear); Color,Urine Yellow (Yellow); Glucose,Urine (UA) Normal (Normal); Ketones,Urine Trace mg/dL (Negative); Leukocyte Esterase,Urine Moderate (Negative); Mucus,Urine Moderate per lpf (None-Few); Nitrite,Urine Negative (Negative); PH,Urine 6.5 pH Units (5.0-8.0); Protein,Urine 30 mg/dL (Neg-Trace); RBC,Urine TNTC per hpf (0-3); Specific Gravity,Urine 1.025 (1.010-1.025); Squamous Epithelial Cell,Urine Moderate per hpf (None-Few)
== END | disposition home or self-care (01) ==
LOC: 1NENULAB
PROVIDERS: ADMIT Obstetrics & Gynecology; ATTEND Obstetrics & Gynecology

== ENCOUNTER 2020-05-26 09:06 | Inpatient (IN) ==
[2020-05-26] MEDS ORDERED: Ondansetron 4 MG/2 ML VIAL IVP PRN (09:41)
[2020-05-26] MEDS ORDERED: Famotidine 20 MG/2 ML VIAL IVP PRN (09:41)
[2020-05-26] MEDS ORDERED: Azithromycin 500 MG in 0.9 % Sodium Chloride 250 ML IVPB ONE (09:41)
[2020-05-26] MEDS ORDERED: Naloxone 0.4 MG/ML INJ IVP PRN (09:41)
[2020-05-26 10:42] LABS: Basophils # 0.1 K/mcL (0.0-0.2); Basophils % 0.6 %; Eosinophils # 0.2 K/mcL (0.0-0.6); Eosinophils % 1.7 %; Hematocrit 36.6 % (35.3-44.9); Hemoglobin 12.1 g/dL (11.5-15.4); Immature Granulocytes % 0.9 % (0-4); Lymphocytes # 3.1 K/mcL (0.6-4.6); Lymphocytes % 23.8 %; Mean Corpuscular HGB Conc 33.1 g/dL (31.6-35.5); Mean Corpuscular Hemoglobin 32.4 pg (28.0-33.3); Mean Corpuscular Volume 97.9 fL (83.0-100.0); Mean Platelet Volume 10.2 fL (9.4-12.4); Monocytes # 0.6 K/mcL (0.0-1.3); Monocytes % 4.9 %; Platelet Count 354 K/mcL (140-400); Red Blood Count 3.74 M/mcL (3.82-4.97); Red Cell Distribution Width 13.2 % (11.5-14.5); Segmented Neutrophils % 68.1 %; White Blood Count 13.2 K/mcL (4.3-11.1)
[2020-05-26 10:59] LABS: Amphetamine Screen,Urine Negative ng/mL (Cutoff=1000); Barbiturate Screen,Urine Negative ng/mL (Cutoff=200); Benzodiazepines Screen,Urine Negative ng/mL (Cutoff=200); Cannabinoid Screen,Urine Positive ng/mL (Cutoff = 50); Cocaine Screen,Urine Negative ng/mL (Cutoff= 300); Opiate Screen,Urine Negative ng/mL (Cutoff=300); Phencyclidine Screen,Urine Negative ng/mL (Cutoff=25)
[2020-05-26] MEDS ORDERED: Penicillin G Potassium 5,000,000 UNIT in 0.9 % Sodium Chloride Mini Bag 100 ML IVPB ONE (12:23)
[2020-05-26] MEDS ORDERED: miSOPROStoL 25 MCG TABLET PO PRN (12:26)
[2020-05-26] MEDS ORDERED: Oxytocin 20 units/ LR 1000 mL 20 UNIT/1,000 ML BAG IVC SCH ×2 (12:30→22:35)
[2020-05-26] MEDS ORDERED: Nicotine 21 MG PATCH.TD24 TD SCH (13:00)
[2020-05-26] MEDS: Ringers Solution, Lactated 1,000 ML IVC SCH ×2 (13:06→16:01)
[2020-05-26] MEDS ORDERED: EPHEDrine 50 MG/ML VIAL IVP PRN (13:09)
[2020-05-26] MEDS ORDERED: *HR* FentaNYL (PF) 100 MCG/2 ML VIAL EP ONE (13:09)
[2020-05-26] MEDS ORDERED: Bupivacaine-MPF 0.25% 10 ML VIAL EP ONE (13:09)
[2020-05-26] MEDS ORDERED: Epidural Premix (fent/bupiv) 110 ML EP SCH (13:15)
[2020-05-26] MEDS ORDERED: Vancomycin 1 EACH in 0.9 % Sodium Chloride 250 ML IVPB SCH (15:00)
[2020-05-26] MEDS ORDERED: Penicillin G Potassium 2,500,000 UNIT in 0.9 % Sodium Chloride 100 ML IVPB SCH (16:00)
[2020-05-26 19:38] LABS: BUN/Creatinine Ratio 27 (6-26); Blood Urea Nitrogen 12 mg/dL (6-20); eGFR For African Americans > 60 (> 60); eGFR For Non-African Americans > 60 (> 60)
[2020-05-26] MEDS ORDERED: Rho Immune Globulin 1,500 UNIT SYRINGE IM PRN (22:35)
[2020-05-26] MEDS ORDERED: Oxytocin 20 units/ LR 1000 mL 20 UNIT/1,000 ML BAG IVC ONE (22:35)
[2020-05-26] MEDS ORDERED: Acetaminophen 325 MG TABLET PO PRN (22:35)
[2020-05-26] MEDS ORDERED: Ibuprofen 600 MG TABLET PO PRN (22:35)
[2020-05-26] MEDS ORDERED: Measles/Mumps/Rubella Vacc 0.5 ML VIAL SQ PRN (22:35)
[2020-05-27 05:34] LABS: Basophils # 0.1 K/mcL (0.0-0.2); Basophils % 0.6 %; Eosinophils # 0.2 K/mcL (0.0-0.6); Eosinophils % 1.6 %; Hematocrit 33.4 % (35.3-44.9); Hemoglobin 11.1 g/dL (11.5-15.4); Immature Granulocytes % 0.6 % (0-4); Lymphocytes # 2.9 K/mcL (0.6-4.6); Lymphocytes % 22.9 %; Mean Corpuscular HGB Conc 33.2 g/dL (31.6-35.5); Mean Corpuscular Hemoglobin 32.5 pg (28.0-33.3); Mean Corpuscular Volume 97.7 fL (83.0-100.0); Mean Platelet Volume 9.9 fL (9.4-12.4); Monocytes # 0.8 K/mcL (0.0-1.3); Monocytes % 6.5 %; Neutrophils # 8.5 K/mcL (1.6-8.9); Platelet Count 309 K/mcL (140-400); Red Blood Count 3.42 M/mcL (3.82-4.97); Red Cell Distribution Width 13.2 % (11.5-14.5); Segmented Neutrophils % 67.8 %; White Blood Count 12.6 K/mcL (4.3-11.1)
[2020-05-27 07:52] VITALS: BP 122/85
[2020-05-27] MEDS ORDERED: Prenatal Vit/FA 1 EACH TABLET PO SCH (09:00)
== END 2020-05-27 13:22 | disposition home or self-care (01) | DRG 560 ==
LOC: 1NENULAB 09:06 → 1NENUOBS 22:33
PROVIDERS: ADMIT Obstetrics & Gynecology; ATTEND Obstetrics & Gynecology